=== PATIENT | male | born 1980 | race Caucasian/White ===

== ENCOUNTER 2017-07-30 15:18 | Emergency (ER) | payer OTHER ==
--- NOTE | 2017-07-30 15:42 | ED ---
Overdose HPI - General Chief Complaint: Overdose Stated Complaint: Overdose Time Seen by Provider: 07/30/17 15:32 Source: patient Mode of arrival: wheelchair Limitations: no limitations - History of Present Illness Initial Comments: 37-year-old male presenting after intentional overdose. Patient states that he took 15-2050 mg Zoloft pills one hour prior to arrival. States he feels sleepy but otherwise has no symptoms. Denies coingestion. Patient states he has a history of bipolar and depression and has felt depressed since his father killed himself 10 years prior. He denies any homicidal ideations, visual auditory hallucinations, drug or alcohol use. Admits to one previous suicide attempt 10 years prior by overdosing on Tylenol. He was admitted to a psychiatric facility at that time. - Related Data Home Medications Medication Instructions Recorded Confirmed Sertraline [Zoloft] 50 mg PO DAILY 07/30/17 07/30/17 Allergies Allergy/AdvReac Type Severity Reaction Status Date / Time No Known Allergies Allergy Verified 07/30/17 17:56 Review of Systems ROS Statement: Those systems with pertinent positive or pertinent negative responses have been documented in the HPI. Review of Systems Constitutional: Denies fever, chills Eyes: Denies change in vision, Denies pain Ears, nose, mouth, throat: Denies headaches, Denies sore throat Cardiovascular: Denies chest pain. Denies palpitations Respiratory: Denies shortness of breath, Denies cough Gastrointestinal: Denies abdominal pain. Denies nausea, vomiting, diarrhea. Genitourinary: Denies hematuria, Denies infections Musculoskeletal: Denies pain, Denies swelling Integumentary: Denies rash Neurological: Denies headache, focal weakness, focal numbness Psychiatric: Positive suicidal ideations and depression Hematologic/Lymphatic: Denies easy bleeding or bruising ROS Other: All systems not noted in ROS Statement are negative. Past Medical History Past Medical History: No Reported History Additional Past Medical History / Comment(s): bipolar History of Any Multi-Drug Resistant Organisms: None Reported Past Surgical History: No Surgical Hx Reported Past Psychological History: No Psychological Hx Reported, Bipolar, Depression Smoking Status: Current every day smoker Past Alcohol Use History: None Reported Past Drug Use History: None Reported General Exam - General Exam Comments Initial Comments: General: Awake, alert, No acute Distress HENT: Normocephalic. Atraumatic Eyes: PERRL. EOMI. No scleral icterus. No injected conjunctiva Neck: Full ROM Chest/Lungs: Clear to auscultation bilaterally. No wheezing, rhonchi, or rales Cardiac: Regular rate, rhythm. No murmurs or rubs Abdomen/GI: [Soft, nontender, nondistended. No rebound, guarding, or rigidity. Musculoskeletal: Full ROM Skin: Warm, dry, intact Neurologic: A/Ox3, no weakness, no sensory deficit, no abnormal gait, no coordination deficit Psychiatric: Flat affect. Limitations: no limitations Course Vital Signs 07/30/17 07/30/17 07/30/17 15:26 17:39 18:32 Temperature 98.3 F Pulse Rate 92 74 95 Respiratory 18 18 18 Rate Blood Pressure 154/101 132/76 154/99 O2 Sat by Pulse 95 96 97 Oximetry 07/30/17 07/30/17 07/30/17 19:05 20:15 21:19 Temperature 98.5 F Pulse Rate 87 80 84 Respiratory 16 19 18 Rate Blood Pressure 139/74 149/71 153/72 O2 Sat by Pulse 96 96 96 Oximetry Medical Decision Making - Medical Decision Making 37-year-old male presenting after intentional overdose. An initial exam the patient is awake, alert, no acute distress. He is hypertensive but otherwise vital signs stable. Spoke with poison control who recommends 6 hour observation prior to medical clearance. They state watch him for serotonin syndrome and treat with Ativan as needed. [id number] Patient was medically cleared and evaluated by EPS. Patient's family at bedside. The EPS worker states the patient has good follow up, good insight, will be staying with his friends until he follows up with the mobile crisis unit tomorrow, and filled out a safety contract. He no longer is a danger to himself. He has no homicidal ideations or hallucinations. He is appropriate on examination. The patient is stable for outpatient follow up. No further emergent workup indicated. The patient was given return to ED instructions. They were instructed to follow up with their primary care provider. Stable for discharge at this time. - Lab Data Result diagrams: 07/30/17 16:20 07/30/17 16:20 Lab Results 07/30/17 07/30/17 07/30/17 Range/Units 16:20 16:20 16:20 WBC 9.9 (3.8-10.6) k/uL RBC 6.17 H (4.30-5.90) m/uL Hgb 17.7 H (13.0-17.5) gm/dL Hct 51.9 (39.0-53.0) % MCV 84.1 (80.0-100.0) fL MCH 28.7 (25.0-35.0) pg MCHC 34.2 (31.0-37.0) g/dL RDW 14.6 (11.5-15.5) % Plt Count 209 (150-450) k/uL Neutrophils % 73 % Lymphocytes % 16 % Monocytes % 8 % Eosinophils % 1 % Basophils % 1 % Neutrophils # 7.3 (1.3-7.7) k/uL Lymphocytes # 1.6 (1.0-4.8) k/uL Monocytes # 0.8 (0-1.0) k/uL Eosinophils # 0.1 (0-0.7) k/uL Basophils # 0.1 (0-0.2) k/uL Sodium 142 (137-145) mmol/L Potassium 4.3 (3.5-5.1) mmol/L Chloride 106 (98-107) mmol/L Carbon Dioxide 24 (22-30) mmol/L Anion Gap 12 mmol/L BUN 17 (9-20) mg/dL Creatinine 1.10 (0.66-1.25) mg/dL Est GFR (CKD-EPI)AfAm >90 (>60 ml/min/1.73 sqM) Est GFR (CKD-EPI)NonAf 85 (>60 ml/min/1.73 sqM) Glucose 113 H (74-99) mg/dL Calcium 10.5 H (8.4-10.2) mg/dL Total Bilirubin 0.9 (0.2-1.3) mg/dL Conjugated Bilirubin 0.0 (0.0-0.3) mg/dL Unconjugated Bilirubin 0.5 (0.0-1.1) mg/dL Delta Bilirubin 0.4 H (0.0-0.2) mg/dL AST 51 (17-59) U/L ALT 88 H (21-72) U/L Alkaline Phosphatase 86 (38-126) U/L Total Protein 8.1 (6.3-8.2) g/dL Albumin 5.3 H (3.5-5.0) g/dL Lipase 108 (23-300) U/L Urine Opiates Screen Not Detected (NotDetected) Ur Oxycodone Screen Not Detected (NotDetected) Urine Methadone Screen Not Detected (NotDetected) Ur Propoxyphene Screen Not Detected (NotDetected) Acetaminophen <10.0 ug/mL Ur Barbiturates Screen Not Detected (NotDetected) U Tricyclic Antidepress Not Detected (NotDetected) Ur Phencyclidine Scrn Not Detected (NotDetected) Ur Amphetamines Screen Not Detected (NotDetected) U Methamphetamines Scrn Not Detected (NotDetected) U Benzodiazepines Scrn Not Detected (NotDetected) Urine Cocaine Screen Not Detected (NotDetected) U Marijuana (THC) Screen Not Detected (NotDetected) - EKG Data -: EKG Interpreted by Me EKG shows normal: sinus rhythm Rate: normal EKG Comments: NSR at a rate of 70 bpm. NM interval 152 ms, QRS duration 88 ms, QT/QTc 404/436 ms Disposition Clinical Impression: Drug overdose, Suicidal behavior with attempted self-injury Disposition: HOME SELF-CARE Condition: Good Instructions: Suicide Prevention for Adults (ED), Depression (ED) Additional Instructions: Follow up with the mobile crisis unit tomorrow. Return to ED if your suicidal thoughts return. Is patient prescribed a controlled substance at d/c from ED?: No Referrals: Guillermina Dias MD [Primary Care Provider] - 1-2 days
[2017-07-30 16:49] LABS: Basophils # (A) 0.1 k/uL (0-0.2); Basophils % (A) 1 %; Eosinophils # (A) 0.1 k/uL (0-0.7); Eosinophils % (A) 1 %; HCT 51.9 % (39.0-53.0); HGB 17.7 gm/dL (13.0-17.5); Lymphocytes # (A) 1.6 k/uL (1.0-4.8); Lymphocytes % (A) 16 %; MCH 28.7 pg (25.0-35.0); MCHC 34.2 g/dL (31.0-37.0); MCV 84.1 fL (80.0-100.0); Monocytes # (A) 0.8 k/uL (0-1.0); Monocytes % (A) 8 %; Neutrophils # (A) 7.3 k/uL (1.3-7.7); Neutrophils % (A) 73 %; Platelet Count 209 k/uL (150-450); RBC 6.17 m/uL (4.30-5.90); RDW 14.6 % (11.5-15.5); WBC 9.9 k/uL (3.8-10.6)
[2017-07-30 16:56] LABS: ALT 88 U/L (21-72); AST 51 U/L (17-59); Acetaminophen <10.0 ug/mL; Albumin 5.3 g/dL (3.5-5.0); Alkaline Phosphatase 86 U/L (38-126); Anion Gap 12 mmol/L; Bilirubin, Delta 0.4 mg/dL (0.0-0.2); Bilirubin,Unconjugated 0.5 mg/dL (0.0-1.1); Blood Urea Nitrogen 17 mg/dL (9-20); Calcium 10.5 mg/dL (8.4-10.2); Carbon Dioxide 24 mmol/L (22-30); Chloride 106 mmol/L (98-107); Glucose 113 mg/dL (74-99); Lipase 108 U/L (23-300); Potassium 4.3 mmol/L (3.5-5.1); Sodium 142 mmol/L (137-145); Total Bilirubin 0.9 mg/dL (0.2-1.3); Total Protein 8.1 g/dL (6.3-8.2)
[2017-07-30 17:21] LABS: Amphetamine Screen,Urine Not Detected (NotDetected); Barbiturate Screen,Urine Not Detected (NotDetected); Benzodiazepines Screen,Urine Not Detected (NotDetected); Cocaine Screen,Urine Not Detected (NotDetected); Methadone Screen, Urine Not Detected (NotDetected); Opiate Screen,Urine Not Detected (NotDetected); Oxycodone Screen, Urine Not Detected (NotDetected); Phencyclidine Screen,Urine Not Detected (NotDetected); Tricyclic Antidepressant,Urine Not Detected (NotDetected); Urn Cannabinoid Scrn Not Detected (NotDetected)
[2017-07-30 23:04] VITALS: BP 150/93; PULSE 81; RESP 19; TEMP 98.8
== END 2017-07-30 23:02 | disposition home or self-care (01) ==
LOC: EC 15:18
DX: T43.222A Poisoning by selective serotonin reuptake inhibitors, intentional self-harm, initial encounter (principal); I10 Essential (primary) hypertension; F31.9 Bipolar disorder, unspecified; F17.200 Nicotine dependence, unspecified, uncomplicated; Z79.899 Other long term (current) drug therapy
CPT/HCPCS: 36415; 80048; 80076; 80306; 82075; 83520; 83690; 85025; 93005; 99285

== ENCOUNTER 2017-08-15 18:57 | Emergency (ER) | payer OTHER ==
[2017-08-15 19:05] VITALS: PULSE 90
--- NOTE | 2017-08-15 19:21 | ED ---
General Adult HPI - General Source: patient, RN notes reviewed Mode of arrival: ambulatory Limitations: no limitations <Chris Thayer - Last Filed: 08/15/17 19:18> <Renard Toscano - Last Filed: 08/16/17 04:51> - General Chief complaint: Psychiatric Symptoms Stated complaint: Mental Health Eval Time Seen by Provider: 08/15/17 19:13 - History of Present Illness Initial comments: Patient is a pleasant 37-year-old male presenting to the emergency Department with request for mental health evaluation. Patient states done just comments and did have an order for him to be picked up and evaluated. Patient states he decided to come in on his own. Patient admits he did have a suicide attempt to go with over taking his pills. Patient states she just started a new bipolar medicine 3 days ago. Patient did not sleep much last night secondary to watching his children. Patient does admit to sending a temperature of guns to his ex-girlfriend. Patient states he was trying to do this to get attention and did not feel suicidal. Patient denies any suicidal ideation at this time still. No homicidal thoughts. No physical complaints. No alcohol or street drug use. Occasional smoking. (Chris Thayer) - Related Data Home Medications Medication Instructions Recorded Confirmed Sertraline [Zoloft] 50 mg PO DAILY 07/30/17 08/15/17 ARIPiprazole [Abilify] 10 mg PO DAILY 08/15/17 08/15/17 Losartan [Cozaar] 50 mg PO DAILY 08/15/17 08/15/17 Allergies Allergy/AdvReac Type Severity Reaction Status Date / Time No Known Allergies Allergy Verified 08/15/17 20:01 Review of Systems ROS Other: All systems not noted in ROS Statement are negative. Constitutional: Denies: fever Eyes: Denies: eye pain ENT: Denies: ear pain Respiratory: Denies: cough Cardiovascular: Denies: chest pain Endocrine: Denies: fatigue Gastrointestinal: Denies: abdominal pain Genitourinary: Denies: dysuria Musculoskeletal: Denies: back pain Skin: Denies: rash Neurological: Denies: weakness <Chris Thayer - Last Filed: 08/15/17 19:18> ROS Other: All systems not noted in ROS Statement are negative. <Renard Toscano - Last Filed: 08/16/17 04:51> ROS Statement: Those systems with pertinent positive or pertinent negative responses have been documented in the HPI. Past Medical History Past Medical History: No Reported History Additional Past Medical History / Comment(s): bipolar History of Any Multi-Drug Resistant Organisms: None Reported Past Surgical History: No Surgical Hx Reported Past Psychological History: Bipolar, Depression Smoking Status: Current every day smoker Past Alcohol Use History: None Reported Past Drug Use History: None Reported <Chris Thayer - Last Filed: 08/15/17 19:18> General Exam Limitations: no limitations General appearance: alert, in no apparent distress Head exam: Present: atraumatic Eye exam: Present: normal appearance, PERRL ENT exam: Present: normal oropharynx Neck exam: Present: normal inspection Respiratory exam: Present: normal lung sounds bilaterally Cardiovascular Exam: Present: regular rate, normal rhythm GI/Abdominal exam: Present: soft. Absent: tenderness Extremities exam: Present: normal inspection Neurological exam: Present: alert Psychiatric exam: Present: normal affect, normal mood Skin exam: Present: normal color <Chris Thayer - Last Filed: 08/15/17 19:18> Vital Signs 08/15/17 19:02 Temperature 98.2 F Pulse Rate 90 Respiratory 20 Rate Blood Pressure 154/95 O2 Sat by Pulse 99 Oximetry Medical Decision Making <Chris Thayer - Last Filed: 08/15/17 19:18> <Renard Toscano - Last Filed: 08/16/17 04:51> - Medical Decision Making 37-year-old male presenting with suicidal ideation. Patient was medically cleared and evaluated by EPS. Given this is his third visit in the past month. Is recommended that the patient be admitted for further psychiatric evaluation and treatment. I was able to complete a clinical certification regarding this patient's suicidal ideation including plan to shoot himself with a gun. Patient is currently awaiting psychiatric placement (Renard Toscano) Disposition <Chris Thayer - Last Filed: 08/15/17 19:18> Is patient prescribed a controlled substance at d/c from ED?: No Time of Disposition: 04:50 Decision to Admit Reason: Admit from EC - Out of Hospital Transfer - Req. Specs Out of Hospital Transfer - Requested Specifics: Psychiatric Non-ICU (To psychiatric hospital.) <Renard Toscano - Last Filed: 08/16/17 04:51> Clinical Impression: Depression, Suicidal ideation Disposition: TRANSFER TO PSYCH HOSP/UNIT Condition: Fair Referrals: Guillermina Dias MD [Primary Care Provider] - 1-2 days
[2017-08-16 04:59] LABS: ALT 75 U/L (21-72); AST 36 U/L (17-59); Albumin 4.1 g/dL (3.5-5.0); Alkaline Phosphatase 82 U/L (38-126); Anion Gap 11 mmol/L; Blood Urea Nitrogen 13 mg/dL (9-20); Calcium 9.8 mg/dL (8.4-10.2); Carbon Dioxide 23 mmol/L (22-30); Chloride 107 mmol/L (98-107); Glucose 99 mg/dL (74-99); Potassium 4.2 mmol/L (3.5-5.1); Sodium 141 mmol/L (137-145); Total Bilirubin 0.5 mg/dL (0.2-1.3); Total Protein 6.3 g/dL (6.3-8.2)
[2017-08-16 05:01] LABS: Basophils % (A) 1 %; Eosinophils # (A) 0.2 k/uL (0-0.7); Eosinophils % (A) 2 %; HCT 44.7 % (39.0-53.0); HGB 15.5 gm/dL (13.0-17.5); Lymphocytes # (A) 1.6 k/uL (1.0-4.8); Lymphocytes % (A) 19 %; MCH 29.4 pg (25.0-35.0); MCHC 34.7 g/dL (31.0-37.0); MCV 84.9 fL (80.0-100.0); Mean Platelet Volume 7.4; Monocytes # (A) 0.6 k/uL (0-1.0); Monocytes % (A) 7 %; Neutrophils # (A) 6.3 k/uL (1.3-7.7); Neutrophils % (A) 71 %; Platelet Count 193 k/uL (150-450); RBC 5.27 m/uL (4.30-5.90); RDW 14.2 % (11.5-15.5); WBC 8.8 k/uL (3.8-10.6)
[2017-08-16 05:04] VITALS: BP 124/65; RESP 18; TEMP 97.5
[2017-08-16 05:35] LABS: Amphetamine Screen,Urine Not Detected (NotDetected); Barbiturate Screen,Urine Not Detected (NotDetected); Benzodiazepines Screen,Urine Not Detected (NotDetected); Cocaine Screen,Urine Not Detected (NotDetected); Methadone Screen, Urine Not Detected (NotDetected); Opiate Screen,Urine Not Detected (NotDetected); Oxycodone Screen, Urine Not Detected (NotDetected); Phencyclidine Screen,Urine Not Detected (NotDetected); Tricyclic Antidepressant,Urine Not Detected (NotDetected); Urn Cannabinoid Scrn Not Detected (NotDetected)
[2017-08-16 05:38] LABS: Appearance,Urine Clear (Clear); Bilirubin,Urine Negative (Negative); Blood,Urine Negative (Negative); Color,Urine Yellow; Glucose,Urine (UA) Negative (Negative); Ketones,Urine Negative (Negative); Leukocyte Esterase,Urine Negative (Negative); Mucus,Urine Occasional /hpf; Nitrite,Urine Negative (Negative); Protein,Urine Trace (Negative); RBC,Urine 1 /hpf (0-5); Specific Gravity,Urine 1.024 (1.001-1.035); Squamous Epithelial Cell,Urine 1 /hpf (0-4); WBC,Urine 1 /hpf (0-5)
== END 2017-08-16 05:11 ==
LOC: EC 18:57
DX: F31.9 Bipolar disorder, unspecified (principal); R45.851 Suicidal ideations; F17.200 Nicotine dependence, unspecified, uncomplicated; Z79.899 Other long term (current) drug therapy
CPT/HCPCS: 36415; 80053; 80306; 81003; 82075; 85025; 99285

== ENCOUNTER 2018-06-27 13:59 | Emergency (ER) | payer OTHER ==
--- NOTE | 2018-06-27 14:57 | XR ---
Left wrist HISTORY: Trauma and pain 4 views of the left wrist Bone mineralization, joint spaces and alignment are maintained IMPRESSION: No fracture or dislocation.
--- NOTE | 2018-06-27 15:17 | ED ---
Upper Extremity HPI - General Chief Complaint: Extremity Injury, Upper Stated Complaint: Wrist injury-[facility] Time Seen by Provider: 06/27/18 15:00 Source: patient, RN notes reviewed Mode of arrival: ambulatory Limitations: no limitations - History of Present Illness Initial Comments: 38-year-old male presents emergency Department chief complaint left wrist injury. 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 Patient states that his risk at tangled and some behind in states he felt a pop. He's had increasing pain since injury. Patient is right-hand dominant no prior injuries. Patient denies any paresthesias. Patient also states that he like to be tested for STDs because he donated plasma and they told him he tested positive for something but does not know what. - Related Data Home Medications Medication Instructions Recorded Confirmed Sertraline [Zoloft] 50 mg PO DAILY 07/30/17 08/15/17 ARIPiprazole [Abilify] 10 mg PO DAILY 08/15/17 08/15/17 Losartan [Cozaar] 50 mg PO DAILY 08/15/17 08/15/17 Previous Rx's Medication Instructions Recorded Ibuprofen [Motrin] 600 mg PO Q8HR PRN #30 tab 06/27/18 Allergies Allergy/AdvReac Type Severity Reaction Status Date / Time No Known Allergies Allergy Verified 06/27/18 14:33 Review of Systems ROS Statement: Those systems with pertinent positive or pertinent negative responses have been documented in the HPI. ROS Other: All systems not noted in ROS Statement are negative. Past Medical History Past Medical History: No Reported History Additional Past Medical History / Comment(s): bipolar History of Any Multi-Drug Resistant Organisms: None Reported Past Surgical History: No Surgical Hx Reported Past Psychological History: Bipolar, Depression Smoking Status: Current every day smoker Past Alcohol Use History: None Reported Past Drug Use History: None Reported General Exam Limitations: no limitations General appearance: alert, in no apparent distress Head exam: Present: atraumatic, normocephalic, normal inspection Respiratory exam: Present: normal lung sounds bilaterally. Absent: respiratory distress, wheezes, rales, rhonchi, stridor Cardiovascular Exam: Present: regular rate, normal rhythm, normal heart sounds. Absent: systolic murmur, diastolic murmur, rubs, gallop, clicks Extremities exam: Present: other (Left wrist pain with range of motion though good range of motion, neurovascular intact, there is no focal tenderness no swelling no ecchymosis there is no tenderness of the left elbow full range of motion) Course Vital Signs 06/27/18 14:31 Temperature 98 F Pulse Rate 89 Respiratory 16 Rate Blood Pressure 168/98 O2 Sat by Pulse 97 Oximetry Medical Decision Making - Medical Decision Making 30-year-old male presented for left wrist injury. Patient has left wrist sprain. Patient also was tested for STDs and which she'll follow-up on. Disposition Clinical Impression: Left wrist sprain, Screen for STD (sexually transmitted disease) Disposition: HOME SELF-CARE Condition: Stable Instructions (If sedation given, give patient instructions): Wrist Injury (ED), Wrist Sprain (ED) Additional Instructions: Please return to the Emergency Department if symptoms worsen or any other concerns. Prescriptions: Ibuprofen [Motrin] 600 mg PO Q8HR PRN #30 tab PRN Reason: Pain Is patient prescribed a controlled substance at d/c from ED?: No Referrals: Guillermina Dias MD [Primary Care Provider] - 1-2 days Ivan Philippe DO [Medical Doctor] - 1-2 days Time of Disposition: 15:17
[2018-06-27 15:44] VITALS: BP 162/87; PULSE 87; RESP 18; TEMP 98.2
[2018-06-28 01:46] LABS: HIV 1 AB Non-Reactive (Non-Reactive); HIV AB P24 Non-Reactive (Non-Reactive); HIV P24 AG Non-Reactive (Non-Reactive)
[2018-06-28 13:57] LABS: C. trachomatis,PCR Negative (Neg,Equiv); Chlamydia trachomatis Source Urine
[2018-06-28 14:01] LABS: N. gonorrhoeae,PCR Negative (Neg,Equiv); Neisseria Source Urine
== END 2018-06-27 15:43 | disposition home or self-care (01) ==
LOC: EC 13:59
DX: S63.502A Unspecified sprain of left wrist, initial encounter (principal); Z11.3 Encounter for screening for infections with a predominantly sexual mode of transmission; F31.9 Bipolar disorder, unspecified; F17.200 Nicotine dependence, unspecified, uncomplicated; Z79.899 Other long term (current) drug therapy; X50.1XXA Overexertion from prolonged static or awkward postures, initial encounter; Y93.89 Activity, other specified
CPT/HCPCS: 36415; 86780; 87390; 87491; 87591; 99283

== ENCOUNTER 2021-10-19 11:46 | Emergency (ER) | payer OTHER ==
[2021-10-19 12:44] VITALS: PULSE 78; TEMP 97.7
--- NOTE | 2021-10-19 13:14 | ED ---
Lower Extremity Injury HPI - General Chief Complaint: Extremity Injury, Lower Stated Complaint: blake pain Time Seen by Provider: 10/19/21 12:48 Source: patient, RN notes reviewed Mode of arrival: ambulatory Limitations: no limitations - History of Present Illness Initial Comments: Patient is a 41 year old male who presents to the emergency room at the direction of urgent care and his primary care provider's office regarding left lower extremity pain and swelling. He reports that on Monday he was seen in urgent care when he developed swelling and pain to the Achilles region of his left lower extremity. He reports that x-ray was negative for fracture and he was advised that he likely had a partial tear of his Achilles and to follow-up with orthopedist. When he contacts his primary care provider's office for follow-up and referral to orthopedist his primary care provider is no longer practicing and the new provider will not be available until next week. He states that he needs clearance either to return to work or a referral to orthopedist for further evaluation. He has been maintaining a splint but been ambulating on his foot without any worsening of his pain. He reports that the swelling in the Achilles region is slowly improving along with the pain. He denies any popping or known trauma. He denies any redness, warmth, or range of motion impairment. She reports similar injury to his right Achilles region last year with improvement with conservative therapy. He denies any other significant past medical history. - Related Data Home Medications Medication Instructions Recorded Confirmed ARIPiprazole [Abilify] 10 mg PO DAILY 08/15/17 10/19/21 Allergies Allergy/AdvReac Type Severity Reaction Status Date / Time No Known Allergies Allergy Verified 10/19/21 14:10 Review of Systems ROS Statement: Those systems with pertinent positive or pertinent negative responses have been documented in the HPI. ROS Other: All systems not noted in ROS Statement are negative. Past Medical History Past Medical History: No Reported History Additional Past Medical History / Comment(s): bipolar History of Any Multi-Drug Resistant Organisms: None Reported Past Surgical History: No Surgical Hx Reported Past Psychological History: Bipolar, Depression Smoking Status: Current every day smoker Past Alcohol Use History: None Reported Past Drug Use History: None Reported General Exam Limitations: no limitations General appearance: alert, in no apparent distress Head exam: Present: atraumatic, normocephalic, normal inspection Eye exam: Present: normal appearance, PERRL, EOMI. Absent: scleral icterus, conjunctival injection, periorbital swelling ENT exam: Present: normal exam, mucous membranes moist Neck exam: Present: normal inspection, full ROM Respiratory exam: Absent: respiratory distress, accessory muscle use Left Ankle exam: Present: full ROM, tenderness (Posterior Achilles tendon region), swelling (Posterior aspect forearm and localized to Achilles tendon region). Absent: abrasion, laceration, ecchymosis, crepitus, dislocation, erythema Course Vital Signs 10/19/21 12:40 Temperature 97.7 F Pulse Rate 78 Respiratory 20 Rate Blood Pressure 144/112 O2 Sat by Pulse 99 Oximetry Medical Decision Making - Medical Decision Making 41-year-old male presenting with left lower extremity pain and swelling without range of motion impairment onset 4 days ago with slow improvement. Seen at urgent care in place in splint. Will repeat x-ray to evaluate for occult fracture suspect Achilles tendon strain. Denies analgesic need. Will monitor. X-ray reveals healing old fracture. No acute osseous anomalies. Normal ankle mo rtise soft tissue without anomalies. Discussed findings with patient. Advised [employer] of Achilles tendinitis with resuming work tomorrow. Advised continued elevation, icing and ibuprofen as needed for pain. Case discussed with Dr. Robles. - Radiology Data Radiology results: report reviewed, image reviewed Left x-ray ankle complete shows roughly 4 mm ossification fragment from the medial malleus appearing fairly well-defined without adjacent soft tissue swelling favors old avulsion type fracture. Lateral malleus is intact. Ankle mortise appears within normal limits. Overlying soft tissue appears unremarkable. Disposition Clinical Impression: Sprain and strain of ankle, Achilles tendinitis, left leg Disposition: HOME SELF-CARE Condition: Stable Instructions (If sedation given, give patient instructions): Ankle Sprain (ED), Achilles Tendinitis (ED) Additional Instructions: Please adhere to conservative management with R.I.C.E; resting affected joint, applying ice every 2-3 hours as needed for up to 20 minutes, compressing with Darryl wrap if needed and elevating joint. After 48 hours from start of pain/injury may begin to alternate ice with heat do not apply heat for greater than 20 minutes and utilize heat source that has auto shut off or self cooling. May utilize Tylenol or ibuprofen as needed for pain or inflammation. Please follow- up with your primary care provider. Please return to the Emergency Department if symptoms worsen or any other concerns. May return to work tomorrow 10/20/2021. Is patient prescribed a controlled substance at d/c from ED?: No Referrals: None,Stated [Primary Care Provider] - 1-2 days Time of Disposition: 15:35
--- NOTE | 2021-10-19 15:00 | XR ---
EXAMINATION TYPE: XR ankle complete LT DATE OF EXAM: 10/19/2021 CLINICAL HISTORY: Pain and swelling TECHNIQUE: Frontal, lateral and oblique images of the left ankle are obtained. COMPARISON: None. FINDINGS: Roughly 4 mm ossific fragment from the medial malleolus appears fairly well-defined without adjacent soft tissue swelling favors old avulsion type fracture injury. Lateral malleolus is intact. The ankle mortise appears within normal limits. The overlying soft tissue appears unremarkable. IMPRESSION: As above.
[2021-10-19 15:49] VITALS: BP 154/90; RESP 18
== END 2021-10-19 15:49 | disposition home or self-care (01) ==
LOC: EC 11:46
DX: S93.402A Sprain of unspecified ligament of left ankle, initial encounter (principal); S96.912A Strain of unspecified muscle and tendon at ankle and foot level, left foot, initial encounter; M76.62 Achilles tendinitis, left leg; F17.200 Nicotine dependence, unspecified, uncomplicated; X58.XXXA Exposure to other specified factors, initial encounter
CPT/HCPCS: 99283

== ENCOUNTER → 2021-12-15 | Outpatient (CLI) | payer OTHER ==
--- NOTE | 2021-12-15 13:47 | MR ---
EXAMINATION TYPE: MR ankle LT wo con DATE OF EXAM: 12/15/2021 COMPARISON: Left ankle x-ray October 19, 2021 HISTORY: Injury L achilles tendon Standard multiplanar, multisequence MRI departmental protocol Multiplanar, multisequence images of the left ankle were acquired without contrast. FINDINGS: Some focal increased signal and thickening in the Achilles tendon centered roughly 7.0 cm s uperior to its insertion. Plantar fascia is intact. Bone marrow signal intensity is maintained. Ankle mortise symmetry is preserved. No significant soft tissue swelling. Normal sinus tarsi fat seen. There is partial remnant os trigonum or incomplete ossi fic fusion sagittal image 14 without abnormal bone marrow signal intensity or surrounding edema. Foca l small to moderate size tibiotalar joint effusion sagittal image 17 posteriorly. The anterior tibiofibular and the anterior talofibular ligaments are intact. Posterior syndesmosis in tact. Medial deltoid ligament intact. Joint effusion surrounds the FHL tendon posterior to the tibiotalar joint axial image 34. This extend s along the course of the tendon to level of the anterior calcaneus. Peroneal tendons are intact. Ant erior extensor tendons are intact. IMPRESSION: 1. Confirmation of tendinopathy/partial tearing of the Achilles tendon. No ligamentous tear is seen.
== END | disposition home or self-care (01) ==
LOC: RADMRIMAIN 06:51
PROVIDERS: ATTEND Internal Medicine
DX: S86.002D Unspecified injury of left Achilles tendon, subsequent encounter (principal)

== ENCOUNTER 2022-10-13 10:00 | Emergency (ER) | payer OTHER ==
[2022-10-13 10:11] VITALS: RESP 16; TEMP 98
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
--- NOTE | 2022-10-13 10:58 | XR ---
EXAMINATION TYPE: XR cervical spine comp DATE OF EXAM: 10/13/2022 COMPARISON: NONE HISTORY: Pain TECHNIQUE: Four views are submitted. FINDINGS: The odontoid is intact. There are no compression deformities. The prevertebral soft tissue structur es are within normal limits. Multilevel mild facet arthropathy and mild degenerative disc disease. IMPRESSION: 1. Multiple level mild facet arthropathy. The patient experiences persistent symptoms would recommend MRI, especially if there is concern for disc herniation.
[2022-10-13 11:26] VITALS: BP 159/85; PULSE 80
== END 2022-10-13 11:26 | disposition home or self-care (01) ==
LOC: EC 10:00
DX: S16.1XXA Strain of muscle, fascia and tendon at neck level, initial encounter (principal); M47.812 Spondylosis without myelopathy or radiculopathy, cervical region; F41.9 Anxiety disorder, unspecified; F32.A Depression, unspecified; F17.200 Nicotine dependence, unspecified, uncomplicated; Z79.899 Other long term (current) drug therapy; X58.XXXA Exposure to other specified factors, initial encounter
CPT/HCPCS: 72050; 99283